=== PATIENT | female | born 1950 | race Caucasian/White ===

== ENCOUNTER 2022-12-18 11:58 | Outpatient (CLI) | payer MEDICARE, SELFPAY ==
--- NOTE | 2022-12-18 13:30 | ECG_ITS ---
Measurements Intervals Wolf Rate: 67 P: -14 AR: 155 QRS: -9 QRSD: 98 T: 41 QT: 398 QTc: 422 Interpretive Statements SINUS RHYTHM NORMAL ELECTROCARDIOGRAM NO PREVIOUS ECG AVAILABLE FOR COMPARISON Electronically Signed On 12-18-2022 15:04:14 [employer]INE[employer]ARD SUPERVISOR by Gus To M.D.
[2022-12-18 14:28] LABS: Basophils Absolute Auto 0.1 K/mm3 (0.0-0.1); Basophils Percent Auto 0.6 % (0.2-1.2); Eosinophils Absolute Auto 0.3 K/mm3 (0-0.3); Eosinophils Percent Auto 2.6 % (0-4.4); Hematocrit 39.9 % (37.0-47.0); Hemoglobin 13.5 g/dL (12.0-15.0); Immature Granulocyte Absolute 0.06 K/mm3 (0.00-0.031); Immature Granulocyte Percent A 0.6 % (0-0.5); Lymphocytes Absolute Auto 1.37 K/mm3 (0.9-3.2); Lymphocytes Percent Auto 14.2 % (18.3-44.2); Mean Corpuscular HGB Conc 33.8 g/dl (32-36); Mean Corpuscular Hemoglobin 31.5 pg (26-34); Mean Platelet Volume 10.2 fl (7.4-10.4); Monocytes Absolute Auto 0.7 K/mm3 (0.1-0.6); Neutrophils Absolute Auto 7.3 K/mm3 (1.3-6.7); Platelet Count Result 335 k/mm3 (150-375); Red Blood Count 4.29 M/mm3 (4.2-5.4); Red Cell Distribution Width 12.4 % (11.5-14.5); White Blood Count 9.7 K/mm3 (4.5-10.0)
[2022-12-18 14:39] LABS: Prothrombin Time 13.2 Seconds (11.1-14.7)
[2022-12-18 14:40] LABS: Partial Thromboplastin Time 27.8 SECONDS (22.3-36.8)
[2022-12-18 14:42] LABS: Alanine Aminotransferase 20 U/L (6-35); Albumin Level 4.1 g/dL (3.5-5.1); Alkaline Phosphatase 105 U/L (38-126); Anion Gap 5 mmol/L (8-16); Aspartate Amino Transferase 26 U/L (14-36); Bilirubin,Total 0.4 mg/dL (0.2-1.3); Blood Urea Nitrogen 16 mg/dL (7-17); Calcium 8.9 mg/dL (8.4-10.2); Carbon Dioxide 31 mmol/L (22-30); Chloride 94 mmol/L (98-107); Estimated Glomerular Filt Rate > 60; Glucose 100 mg/dL (65-110); Potassium 3.9 mmol/L (3.4-5.0); Sodium 130 mmol/L (137-145)
== END 2022-12-18 11:59 | disposition home or self-care (01) ==
PROVIDERS: PCP Family Medicine; Visit Provider Urology
DX: N99.3 Prolapse of vaginal vault after hysterectomy (principal); I10 Essential (primary) hypertension; Z01.818 Encounter for other preprocedural examination
CPT/HCPCS: 36415; 80053; 85025; 85610; 85730; 86850; 86900; 86901; 87086; 93005

== ENCOUNTER 2022-12-28 00:54 | Day surgery (SDC) | payer MEDICARE, SELFPAY ==
[2022-12-18 12:39] VITALS: BMI 24.7
--- NOTE | 2022-12-18 13:01 | PC.NURSE ---
Report to the Outpatient Waiting Room, entrance under the green pavilion located off [facility], at time __9:30AM on date __12/28/22 . Planned Procedure Time: __11:30AM . Time changes happen often and if your time is changed the preop area will call you the afternoon before. - You and your visitor will be asked to self-screen and do not enter if you have any COVID symptoms. - Only one visitor is requested with a max of two and NO children visitors are allowed at this time. - The patient visitor may be requested to leave or wait in car when not with patient due to distancing restrictions. - A mask is optional within the hospital at this time. Patients may have clear liquids (water, carbonated beverages, clear teas, apple juice) until 3 hours prior to surgery with a maximum of 20 ounces. - No food from midnight until time of surgery Take the following medications with a SIP of water the morning of surgery: ____ALBUTEROL INHALER NEEDED, EYE DROPS, IPRATROPIUM NASAL SPRAY, LEVOTHYROXINE, METORPROLOL, PREDNISONE DO NOT STOP ANY OF YOUR OTHER PRESCRIPTION MEDICATIONS PRIOR TO SURGERY ?EXCEPT THE FOLLOWING Medications to discontinue per physician ____HOLD ALL VITAMINS/SUPPLEMENTS 7 DAYS PRE-OP PER DR TREJO Date to take last dose 12/21/22 Please no make-up, nail egyptian, hairspray, perfume, deodorant, or body powder the day of surgery. No jewelry (including any body piercings) or valuables the day of surgery, leave them at home. Please take a shower or bath the night before, or the morning of, surgery with an antibacterial soap. Wear comfortable, loose fitting clothing. Children are encouraged to wear pajamas. - Jewelry must be removed prior to entering the operating room. Rings and piercings that are not removed may be cut off. - The hospital will not accept responsibility for valuables. - Please leave all valuables, including medications, at home the day of surgery. If you are going home after surgery, a licensed deliver driver must drive you home. - NO public transportation without another adult if you receive anesthesia. - We recommend that an adult stay with you for 24 hours following discharge. - We also recommend that you do not drive, make important decision, drink alcoholic beverages, or take any drugs that were not prescribed by your health care provider for at least 24 hours after your discharge time. Follow any additional instructions given to you from your surgeon. If you or anyone in your household have experienced Covid symptoms in the past week, please notify your surgeon or the nurse liaison at the phone number below for possible testing. Telephone instructions given to __PATIENT & HUSBAND_and asked if any additional questions and then verbalized understanding. Patient advised to call surgeon office or pre surgery nurse liaison [phone] if any additional questions.
[2022-12-18 13:33] VITALS: BP 145/75; PULSE 74; RESP 16; TEMP 36.6; O2SAT 100
--- NOTE | 2022-12-25 08:11 | PM.IMHP ---
H&P: HPI History of Present Illness Date/Time: 12/25/22 08:11 Chief Complaint: Pelvic organ prolapse, stress Narrative: 72-year-old female. Status post hysterectomy. 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 Review of Systems Review of Systems: All systems reviewed & are unremarkable except as noted in HPI and below PMFSH Social History Social History Smoking status: Never smoker Alcohol intake: current Drinks per week: 3 Substance use: never Living arrangements: with family Additional living arrangements comments: HUSB Spiritual care concerns: No Meds Home Medications and Allergies Home Medications Medication Instructions Recorded Confirmed Type albuterol sulfate 90 mcg/actuation 2 puff inhalation QID PRN Dyspnea 12/18/22 12/18/22 History aerosol inhaler ascorbic acid (vitamin C) 1,000 mg 1 g PO DAILY 12/18/22 12/18/22 History capsule sjvsldxvbr-hbvmrvlaigpyx-eqecppec 1 cap PO Q4-5H PRN Migraine 12/18/22 12/18/22 History 50 mg-300 mg-40 mg capsule Headache cholecalciferol (vitamin D3) 125 125 mcg PO DAILY 12/18/22 12/18/22 History mcg (5,000 unit) tablet cyclosporine 0.05 % eye drops in a 1 drp EACH EYE BID 12/18/22 12/18/22 History dropperette (Restasis) estradiol 0.5 mg tablet 0.5 mg PO DAILY 12/18/22 12/18/22 History famotidine 20 mg tablet 20 mg PO DAILY 12/18/22 12/18/22 History fluticasone propionate 50 1 spray intranasal HS 12/18/22 12/18/22 History mcg/actuation nasal spray,suspension folic acid 1 mg tablet 1 mg PO DAILY 12/18/22 12/18/22 History guaifenesin 600 mg tablet, 300 mg PO Q12H PRN Congestion 12/18/22 12/18/22 History extended release 12 hr (Mucinex) ipratropium bromide 42 mcg (0.06 2 spray intranasal BID 12/18/22 12/18/22 History %) nasal spray lactobacillus combination no.4 3 3,000 mmu cells PO DAILY 12/18/22 12/18/22 History billion cell capsule (Probiotic) levothyroxine 112 mcg tablet 112 mcg PO QAM 12/18/22 12/18/22 History methotrexate sodium 2.5 mg tablet 5 mg PO WEEKLY 12/18/22 12/18/22 History metoprolol succinate 100 mg 100 mg PO QAM 12/18/22 12/18/22 History tablet,extended release 24 hr montelukast 10 mg tablet 10 mg PO DAILY 12/18/22 12/18/22 History omikxmjf-tznlnfry-ceb C 250 2 tablet PO DAILY 12/18/22 12/18/22 History mg-herbal no.124 11.66 mg chewable tablet (Airborne Gummy) cdaimglk-mzfdvdmbs-lxityvxy 3.5 1 drp EACH EYE TID PRN Inflammation 12/18/22 12/18/22 History mg/mL-10,000 unit/mL-0.1% eye drops nortriptyline 25 mg capsule 25 mg PO HS 12/18/22 12/18/22 History prednisone 5 mg tablet 5 mg PO QAM 12/18/22 12/18/22 History riboflavin (vitamin B2) 100 mg 100 mg PO DAILY 12/18/22 12/18/22 History tablet (Vitamin B-2) triamterene 37.5 1 tablet PO QAM 12/18/22 12/18/22 History mg-hydrochlorothiazide 25 mg tablet Allergies Allergy/AdvReac Type Severity Reaction Status Date / Time cephalexin Allergy Rash Verified 12/18/22 12:17 desoximetasone Allergy Rash Verified 12/18/22 12:17 [From Topicort] doxycycline Allergy Rash Verified 12/18/22 12:17 gatifloxacin [From Tequin] Allergy Unknown Verified 12/18/22 12:17 Sulfa (Sulfonamide Allergy Rash Verified 12/18/22 12:17 Antibiotics) azathioprine AdvReac SPIKE IN Verified 12/18/22 12:17 LIVER ENZYMES celecoxib AdvReac BRUISING Verified 12/18/22 12:17 levofloxacin AdvReac INSOMNIA, Verified 12/18/22 12:17 JOINT PAIN Exam Narrative: Anterior wall +3. [place] at -1. Urethral mobility noted Assessment and Plan Assessment and plan (1) Prolapse of vaginal vault after hysterectomy: Code(s): N99.3 - Prolapse of vaginal vault after hysterectomy Status: Acute (2) SHANNEN (stress urinary incontinence, female): Code(s): N39.3 - Stress incontinence (female) (male) Status: Acute Plan robotic sacral colpopexy, urethral sling. Under
[2022-12-28] VITALS (22 sets, daily range): BP systolic 123–178; BP diastolic 66–119; PULSE 55–80; RESP 12–22; TEMP 36.1–36.9; O2SAT 93–100
--- NOTE | ~2022-12-28 | CT_ITS ---
EXAMINATION: CTA chest PE protocol DATE: 12/28/2022 19:07 INDICATION: respiratory distress TECHNIQUE: Computed tomography angiography (CTA) of the chest was performed with 100 mL Omnipaque-350 intravenous contrast timed to evaluate the pulmonary arteries. Coronal maximum intensity projection 3D-reconstructions were created by the technologist. The dose-length product (DLP) was 249.76 mGy-cm. Automated exposure control and iterative reconstruction technique were employed. COMPARISON: None. FINDINGS: Lung parenchyma and airways: Peripheral and basal reticular opacities. Lower lobe bronchiectasis. Tog ether these likely represent a UIP pattern of interstitial lung disease. Pleura: Unremarkable. Thoracic inlet, axillae and chest wall: Unremarkable. Thoracic aorta: Mild arch calcification. Mediastinum: Mediastinal lymphadenopathy. Heart and pericardium: Normal. Coronary artery calcifications: Absent. Upper abdomen: No significant finding. Bones: No acute osseous finding. Pulmonary arteries: Study quality: Adequate. No pulmonary emboli detected. IMPRESSION: No CT evidence of acute pulmonary embolus. Chronic findings of interstitial lung disease. Reviewed, dictated and finalized at location K. ENT DIRECTOR IMPRESSION: No CT evidence of acute pulmonary embolus. Chronic findings of interstitial alma g disease.
--- NOTE | 2022-12-28 07:13 | WPDHPUPDATE1 ---
History and Physical Update Update Date/Time: 12/28/22 07:13 History and Physical has been reviewed, including an updated exam of the patient. There are NO changes in the patient's condition. Risks, benefits, and alternatives have been discussed and questions answered. Patient agrees to proceed with procedure.
[2022-12-28] MEDS: LACTATED RINGERS 1,000 ML 30 ML IV CONT ×2 (10:28→14:02)
[2022-12-28 10:40] LABS: Sodium 134 mmol/L (137-145)
--- NOTE | 2022-12-28 10:42 | WPDANESEPPF ---
Anes - Initial Pre Proc Eval Procedure: Operation Date: 12/28/22 11:30 Proposed Procedures p Robotic Sacrocolpopexy - Otis Ambriz MD s Urethral Sling - Otis Ambriz MD Date/Time: 12/28/22 10:42 Surgeon: Otis Ambriz MD Pre Op Diagnosis: vag vault prolpase after hyst Patient Data Age: 72 Gender: F Height: 1.64 m Weight: 66.4 kg Last Vital Signs Temp 97.8 F 12/18/22 13:33 Pulse 74 12/18/22 13:33 Resp 16 12/18/22 13:33 BP 145/75 H 12/18/22 13:33 Pulse Ox 100 12/18/22 13:33 O2 Del Method Room Air 12/18/22 13:33 Allergies Allergy/AdvReac Type Severity Reaction Status Date / Time cephalexin Allergy Rash Verified 12/28/22 10:07 desoximetasone Allergy Rash Verified 12/28/22 10:07 [From Topicort] doxycycline Allergy Rash Verified 12/28/22 10:07 gatifloxacin [From Tequin] Allergy Unknown Verified 12/28/22 10:07 Sulfa (Sulfonamide Allergy Rash Verified 12/28/22 10:07 Antibiotics) azathioprine AdvReac SPIKE IN Verified 12/28/22 10:07 LIVER ENZYMES celecoxib AdvReac BRUISING Verified 12/28/22 10:07 levofloxacin AdvReac INSOMNIA, Verified 12/28/22 10:07 JOINT PAIN Home Medications Medication Instructions Recorded Confirmed Type albuterol sulfate 90 mcg/actuation 2 puff inhalation QID PRN Dyspnea 12/18/22 12/28/22 History aerosol inhaler ascorbic acid (vitamin C) 1,000 mg 1 g PO DAILY 12/18/22 12/28/22 History capsule jwxwhdatlp-tmokdghvabjii-gitnrjyk 1 cap PO Q4-5H PRN Migraine 12/18/22 12/28/22 History 50 mg-300 mg-40 mg capsule Headache cholecalciferol (vitamin D3) 125 125 mcg PO DAILY 12/18/22 12/28/22 History mcg (5,000 unit) tablet cyclosporine 0.05 % eye drops in a 1 drp EACH EYE BID 12/18/22 12/28/22 History dropperette (Restasis) estradiol 0.5 mg tablet 0.5 mg PO DAILY 12/18/22 12/28/22 History famotidine 20 mg tablet 20 mg PO DAILY 12/18/22 12/28/22 History fluticasone propionate 50 1 spray intranasal HS 12/18/22 12/28/22 History mcg/actuation nasal spray,suspension folic acid 1 mg tablet 1 mg PO DAILY 12/18/22 12/28/22 History guaifenesin 600 mg tablet, 300 mg PO Q12H PRN Congestion 12/18/22 12/28/22 History extended release 12 hr (Mucinex) ipratropium bromide 42 mcg (0.06 2 spray intranasal BID 12/18/22 12/28/22 History %) nasal spray lactobacillus combination no.4 3 3,000 mmu cells PO DAILY 12/18/22 12/28/22 History billion cell capsule (Probiotic) levothyroxine 112 mcg tablet 112 mcg PO QAM 12/18/22 12/28/22 History methotrexate sodium 2.5 mg tablet 5 mg PO WEEKLY 12/18/22 12/28/22 History metoprolol succinate 100 mg 100 mg PO QAM 12/18/22 12/28/22 History tablet,extended release 24 hr montelukast 10 mg tablet 10 mg PO DAILY 12/18/22 12/28/22 History jfeeskag-uqfgrocu-rtc C 250 2 tablet PO DAILY 12/18/22 12/28/22 History mg-herbal no.124 11.66 mg chewable tablet (Airborne Gummy) wbjljekp-djywgnqup-tzsdbfrc 3.5 1 drp EACH EYE TID PRN Inflammation 12/18/22 12/28/22 History mg/mL-10,000 unit/mL-0.1% eye drops nortriptyline 25 mg capsule 25 mg PO HS 12/18/22 12/28/22 History prednisone 5 mg tablet 5 mg PO QAM 12/18/22 12/28/22 History riboflavin (vitamin B2) 100 mg 100 mg PO DAILY 12/18/22 12/28/22 History tablet (Vitamin B-2) triamterene 37.5 1 tablet PO QAM 12/18/22 12/28/22 History mg-hydrochlorothiazide 25 mg tablet Laboratory Tests 12/28/22 10:04 Sodium 134 mmol/L L mmol/L (137-145) Patient hx anesthesia problems: none Family hx anesthesia problems: none Results Review: All pre-operative results and documents have been reviewed as part of the pre-operative evaluation. [facility] Social History Social History Smoking status: Never smoker Alcohol intake: current Drinks per week: 3 Substance use: never Living arrangements: with family Additional living arrangements comments: FARIDEH Brooks
[2022-12-28] MEDS: CLINDAMYCIN 600 MG/D5W 50 ML 600 MG/50 ML PIGGYBACK 100 MG IVPB ×2 (11:05→19:20)
[2022-12-28] MEDS: BUPIVACAINE/EPINEPHRINE 0.5% 10 ML VIAL INFILTRATE (11:36)
--- NOTE | 2022-12-28 14:08 | W.PM.PROC2 ---
Procedure Note - Detailed Date of Procedure 12/28/22 Pre-op Diagnosis vag vault prolpase after hyst stress incontinence Post-op Diagnosis Same Procedure Performed Robotic assisted laparoscopic sacral colpopexy Urethral sling Cystoscopy Surgeon Otis Ambriz MD Anesthesia General Indications This is a woman with post hysterectomy vaginal vault prolapse as well as stress urinary incontinence. She desires surgical correction. She understands risks of bleeding, infection, diskitis, damage to surrounding organs, damage to the bowel or urinary tract, recurrence of prolapse, dyspareunia, vaginal mesh exposure, urinary tract mesh exposure, obstructive voiding requiring secondary procedure, hip and leg pain, and other perioperative intraoperative and postoperative complications. She is to proceed Findings See below Description of Procedure She was correctly identified. Informed consent obtained. She is brought to the operating room. She was given general anesthesia. She was placed in the lithotomy position. She was given appropriate perioperative antibiotics. She was prepped and draped in a sterile fashion. A time-out performed. I anesthetized the skin 3 fingerbreadths cephalad to the umbilicus. I incised the skin. I located the fascia. I grasped the fascia with Layla clamps. I incised the fascia sharply and a Turner type technique. I placed Vicryl sutures for later fascial closure. I placed a midline trocar. Under direct vision placed 2 additional trocars in the right upper quadrant and 2 additional trocars in the left upper quadrant. She was placed in steep Trendelenburg. The robot was docked. I sat at the console. With the Sizer in the vagina and created a plane on the anterior and posterior vaginal wall for several cm taking great care not to injure the vagina, bladder, or rectum. of note there was quite a bit of scarring in this area due to previous hysterectomy. Adnexa was sewn across the midline over the apex I introduced the mesh into the vagina. I sewed the anterior leaflet of mesh on the anterior vaginal wall and posterior leaf of the mesh on the posterior vaginal wall with several sutures of 2 0 Rogers-Jack taking great care not to go through and through. I then opened up the peritoneum over the sacral promontory. I carried this incision into the cul-de-sac. I freed up the edges for later retroperitonealization of the mesh. I located the anterior longitudinal ligament of the sacrum. I cleaned off any fatty tissues. I then tensioned my mesh appropriately. I did a vaginal exam to ensure prolapse reduction without undue tension. I then sewed the proximal leaflet of mesh onto the ligament with several sutures of 2 0 Rogers-Jack. I then used a 2 0 Monocryl to meticulously retroperitonealized all mesh. I allowed the colon to go back into its normal anatomic location. There is no sign of impingement. He had an was then exited. additional fascial sutures were placed. Fascial sutures were closed. The wounds were all irrigated and closed with 4 O Monocryl and skin glue. She was then repositioned and prepped for urethral sling. I marked out the inner thigh incisions. I anesthetized the skin and made those incisions. I then anesthetized the anterior vaginal wall over the mid urethra. I made a 1 cm incision. I dissected out laterally taking great care not to injure the urethra vaginal wall. I passed the helical trocars. I did this 1st on the left than on the right from the thigh incision towards the vaginal incision. Sling was connected to the trocars and brought out through the thigh incision. I tensioned the sling appropriately. I cut and removed the plastic sleeves. I then performed cystoscopy. The bladder showed no evidence of surgical artifact or tumor. Both ureters were seen to excrete clear yellow urine. I cut the excess sling material. I closed incisions with glue. She was awakened and transferred to the PACU in stable
[2022-12-28] MEDS: fentaNYL CITRATE INJ (*CRX) 100 MCG/2 ML VIAL 25 MCG IV PUSH ×4 (14:28→14:44)
--- NOTE | 2022-12-28 15:23 | PC.NURSE ---
This patient, Luz Rivas, was received from PACU on 12/28/22 at 1523. Patient/family oriented to unit policies and routines
[2022-12-28] MEDS: KCL 20 MEQ/D5/0.45% SOD CHL 1,000 ML 100 ML IV CONT (16:20)
[2022-12-28] MEDS: IPRATROPIUM NASAL SPRAY 0.06% 15 ML BOTTLE 2 SPRAY NASAL (16:25)
--- NOTE | 2022-12-28 17:21 | PM.IMCN ---
Assessment and Plan Assessment and plan (1) S/P sacrocolpopexy: Code(s): Z98.890 - Other specified postprocedural states Status: Acute Assessment and Plan: Postop care per Dr. Ambriz for bladder sling Analgesics per Dr. Ambriz. (2) Hypertension: Code(s): I10 - Essential (primary) hypertension Status: Acute Assessment and Plan: -p.r.n. hydralazine -continue with metoprolol -continue with triamterene with hydrochlorothiazide but monitor renal function closely. (3) Hypothyroidism: Code(s): E03.9 - Hypothyroidism, unspecified Status: Acute Assessment and Plan: Continue with levothyroxine (4) Interstitial lung disease: Code(s): J84.9 - Interstitial pulmonary disease, unspecified Status: Acute Assessment and Plan: -continue with nebulizer treatments, continue with prednisone, continue singular Continue with guaifenesin Wean off oxygen when able. Continue with nebulizer treatments HPI Data of Consult Consult date: 12/29/22 Requesting Physician: Otis Ambriz MD Primary Care Provider: Kuldeep DejesusMD Consult Narrative Narrative: Luz Rivas is a 72 year old female who underwent a vaginal vault prolapse after hysterectomy and stress incontinence she had a robotic assisted laparoscopic sacral colpopexy, urethral sling, and cystoscopy. Postoperatively the patient became very anxious and short of breath. She was hypoxic at 89% she was placed on oxygen at 2 L per nasal cannula. The patient was somewhat lethargic when I assessed her. A CTA was performed and there is no CT evidence of acute coronary embolus. Chronic findings of interstitial lung disease. Her white count was noted to be 17.7. Sodium 131. Glucose 137. The patient was admitted to Dr. Ambriz and the hospitalist group was consulted on the date of service of 12/28/2022. Review of Systems Review of Systems: See HPI All systems reviewed & are unremarkable except as noted in HPI and below Constitutional: Constitutional: Reports as per HPI and Reports no additional constitutional complaints Eyes: Eyes: Reports as per HPI and Reports no additional eye complaints ENT: Reports system reviewed and no additional complaints, except as documented and Reports Normal hearing present Cardiovascular: Cardiovascular: Reports no additional cardiovascular complaints Respiratory: Respiratory: Reports no additional respiratory complaints and Reports no additional respiratory complaints Gastrointestinal: Gastrointestinal: Reports as per HPI and Reports no additional gastrointestinal complaints Musculoskeletal: Musculoskeletal: Reports no additional musculoskeletal complaints Integumentary/Breasts: Skin/Breast: Reports system reviewed and no additional complaints, except as docu and Reports as per HPI Neurologic: Reports system reviewed and no additional complaints, except as documented, Reports as per HPI and Reports Normal hearing present Psychiatric: Psychiatric: Reports no additional psychiatric complaints and Reports as per HPI Endocrine: Endocrine: Reports no additional endocrine complaints Hematologic/Lymphatic: Hematologic/Lymphatic: Reports no additional hematologic/lymphatic complaints Allergic/Immunologic: Allergic/Immunologic: Reports no additional allergic/immunologic complaints [facility] Past Medical History Medical History (Updated 12/29/22 @ 00:35 by Rosario Desir NP) Hypertension Hypothyroidism Interstitial lung disease Surgical History Surgical History (Updated 12/29/22 @ 00:41 by Rosario Desir NP) H/O cataract extraction H/O cystoscopy H/O eye surgery H/O tubal ligation H/O: hysterectomy S/P ASA/PRK (advanced surface ablation photorefractive keratectomy) S/P LASIK surgery S/P nasal surgery S/P sacrocolpopexy Status post creation of urethral sling by suprapubic approach Family History Family History (Updated 12/29/22 @ 00:36 by Rosario Rodriguez
[2022-12-28 18:26] LABS: Hematocrit 38.8 % (37.0-47.0); Hemoglobin 13.2 g/dL (12.0-15.0); Mean Corpuscular Hemoglobin 32.2 pg (26-34); Mean Corpuscular Volume 94.6 fl (80-100); Mean Platelet Volume 9.5 fl (7.4-10.4); Platelet Count Result 273 k/mm3 (150-375); Red Cell Distribution Width 12.4 % (11.5-14.5); White Blood Count 17.7 K/mm3 (4.5-10.0)
[2022-12-28 18:37] LABS: Anion Gap 5 mmol/L (8-16); Blood Urea Nitrogen 14 mg/dL (7-17); Calcium 7.9 mg/dL (8.4-10.2); Carbon Dioxide 27 mmol/L (22-30); Chloride 99 mmol/L (98-107); Estimated CRCL calculation 54 ml/min; Estimated Glomerular Filt Rate > 60; Glucose 137 mg/dL (65-110); Potassium 3.7 mmol/L (3.4-5.0); Sodium 131 mmol/L (137-145)
--- NOTE | 2022-12-28 19:22 | PC.NURSE ---
1545 Pt's called out, pt c/o secretions stuck in her throat on her left side. Pt had c/o dry mouth and was unable to cough and clear secretions. Pt took 2 puffs of her own Albuterol inhaler w/ help of her w/o RN in room. No improvement. RN assisted pt w/ splinting, deep breaths and coughing, still not able to cough up secretions. Pulse ox remained @ 100%. Per pt her secretions get thick and rubbery when she doesn't take her Mucinex, which she was told to hold and not take today due to her surgery. (This note added to respiratory assessment) 1600 RN @ bedside, pt taking ice chips, used dry mouth swabs and took her own Albuterol x1 again. Pt felt like she needed to belch and wanted to sit up, RN x2 assisted pt and patted pt's back and she was able to have a small belch but still not able to clear her secretions. RN assisted pt again w/ splinting, deep breaths and coughing, still no improvement. Pt still c/o mucous being stuck in the left side of her throat, pt rubbing throat to see if that helps. Pulse ox remains @ 100%. 1615 Rapid Response called due to no improvement in patient's breathing and not being able to clear her secretions. Information Systems Operator, Tate, ICU learning and development analyst and Respiratory present shortly after call. 1618 Dr. Ambriz called, left message with staff. 1622 Dr. Cui with anesthesia called and updated. 1625 Dr. Ambriz returned call, update given. Also advised MD that pt's abdomen was soft, incisions dry and intact, urine is clear and no pain. Per Dr. Ambriz transfer pt to telemetry floor. Information Systems Operator, Tate, aware. 1655 Patient transferred to Room 242 and settled in room with family at bedside, report given to Juana ADAMS.
[2022-12-28] MEDS: cycloSPORINE 0.4 ML OPHTH SOLUTION 1 DROP EACH EYE (19:23)
[2022-12-28] MEDS: MORPHINE SULFATE (*CRX) 2 MG/ML INJ IV PUSH (19:46)
[2022-12-28] MEDS: ALBUTEROL SULFATE NEB 2.5 MG/3 ML INH INHALATION (20:03)
[2022-12-28] MEDS: IPRATROPIUM BR 0.02% INH SOLN 0.5 MG/2.5 ML VIAL INHALATION (20:03)
[2022-12-28] MEDS: FLUTICASONE PROPIONATE 0.05% NA SPR 16 GM BTL (*BKC) 1 SPRAY NASAL (20:39)
[2022-12-28] MEDS: NORTRIPTYLINE HCL 25 MG CAPSULE PO (20:39)
[2022-12-28] MEDS: guaiFENesin 600 MG/DEXTROMETHORPHAN 30 MG SR TAB 12 HR 1 TAB PO (20:39)
[2022-12-29] VITALS (13 sets, daily range): BP systolic 114–142; BP diastolic 58–77; PULSE 66–72; RESP 16–18; TEMP 36.3–37.6; O2SAT 93–99
[2022-12-29] MEDS: KCL 20 MEQ/D5/0.45% SOD CHL 1,000 ML 100 ML IV CONT (01:50)
[2022-12-29] MEDS: MORPHINE SULFATE (*CRX) 2 MG/ML INJ IV PUSH (01:53)
[2022-12-29] MEDS: CLINDAMYCIN 600 MG/D5W 50 ML 600 MG/50 ML PIGGYBACK 100 MG IVPB ×2 (02:54→10:03)
[2022-12-29 06:23] LABS: Basophils Percent Auto 0.3 % (0.2-1.2); Eosinophils Absolute Auto 0.2 K/mm3 (0-0.3); Eosinophils Percent Auto 1.7 % (0-4.4); Hematocrit 36.1 % (37.0-47.0); Immature Granulocyte Absolute 0.06 K/mm3 (0.00-0.031); Immature Granulocyte Percent A 0.5 % (0-0.5); Lymphocytes Absolute Auto 2.03 K/mm3 (0.9-3.2); Lymphocytes Percent Auto 17.8 % (18.3-44.2); Mean Corpuscular HGB Conc 33.2 g/dl (32-36); Mean Corpuscular Hemoglobin 31.8 pg (26-34); Mean Corpuscular Volume 95.8 fl (80-100); Monocytes Percent Auto 8.5 % (2.6-8.5); Neutrophils Absolute Auto 8.1 K/mm3 (1.3-6.7); Neutrophils Percent Auto 71.2 % (45.5-73.1); Platelet Count Result 265 k/mm3 (150-375); Red Blood Count 3.77 M/mm3 (4.2-5.4); Red Cell Distribution Width 12.7 % (11.5-14.5); White Blood Count 11.4 K/mm3 (4.5-10.0)
[2022-12-29 06:39] LABS: Anion Gap 4 mmol/L (8-16); Blood Urea Nitrogen 11 mg/dL (7-17); Calcium 7.5 mg/dL (8.4-10.2); Carbon Dioxide 25 mmol/L (22-30); Chloride 101 mmol/L (98-107); Estimated CRCL calculation 63 ml/min; Estimated Glomerular Filt Rate > 60; Glucose 111 mg/dL (65-110); Magnesium 1.8 mg/dL (1.6-2.3); Sodium 130 mmol/L (137-145)
[2022-12-29] MEDS: LEVOTHYROXINE SODIUM 112 MCG TABLET PO (06:39)
[2022-12-29 07:22] LABS: Thyroid Stimulating Hormone Reflex 0.233 uIU/mL (0.465-4.68)
--- NOTE | 2022-12-29 08:21 | PM.IMPN ---
Progress Note: A&P Assessment and Plan (1) S/P sacrocolpopexy: Code(s): Z98.890 - Other specified postprocedural states Status: Acute Assessment and Plan: Postop care per Urology Analgesics per urology (2) Hypertension: Code(s): I10 - Essential (primary) hypertension Status: Acute Assessment and Plan: Chronic, stable. BP 142/63 to 132/77, HR 68 May have some pain component. Continue with metoprolol and triamterene with hydrochlorothiazide Sodium 130, but appears chronic. Likely secondary to HCTZ. Renal function stable. (3) Hypothyroidism: Code(s): E03.9 - Hypothyroidism, unspecified Status: Chronic Assessment and Plan: Chronic, TSH 0.23, free T4 2.34 and mildly elevated. Recommend repeating thyroid panel in 2-4 weeks postop to verify. Continue with levothyroxine Management per primary care team. (4) Interstitial lung disease: Code(s): J84.9 - Interstitial pulmonary disease, unspecified Status: Acute Assessment and Plan: Chronic, off supplemental oxygen. No wheezing or respiratory complaints. Continue with nebulizer treatments, chronic prednisone, singular and PRN guaifenesin Nursing to ambulate patient and check spO2 to ensure no desaturation prior to discharge. Plan Patient to be discharged home today per Urology team. No concerns for discharge at this time. We discussed adding OTC stool softeners to prevent constipation if she continues to take opioid medications at home. Encouraged to continue incentive spirometry at least 48 hours postop. Time Spent With Patient Time: 20 minutes time spent reviewing medical chart, labs, vitals, patient assessment and education. Subjective Date/time seen: 12/29/22 08:21 POD1 Robotic assisted laparoscopic sacral colpopexy, Urethral sling and Cystoscopy with Dr. Ambriz. Hospitalist team was consulted for management of chronic diseases. She reports feeling tired and has some abdominal pain today. Clark was removed, but no urination yet. She is belching, but denies nausea or emesis. No BM yet. She denies chest pain, SOB, or palpitations. Oxygen was removed this morning. Review of Systems Review of Systems: All systems reviewed & are unremarkable except as noted in HPI and below Exam Narrative: General: No acute distress.? Well-developed adult female sitting up in the chair. Mental Status/Psych: Awake, alert and oriented x4 with clear speech. Neutral mood and affect. Pleasant and cooperative. Skin: fair, warm, dry and intact without rashes or lesions. Fair turgor.? HEENT: Normocephalic. Sclera is non-icteric. pupils equal and round. Grossly normal hearing. Oral mucosa pink and moist. Neck: Supple. No JVD. Heart: S1 and S2 regular rate and rhythm. No murmurs, gallops, or rubs auscultated. Chest: Respirations even and unlabored. Lung sounds are clear to auscultation, diminished in bibasilar lobes without wheezes, rhonchi, or rales. Abdomen: Soft, round and mildly tender to palpation diffusely.? Bowel sounds present in all 4 quadrants. Extremities:? Grossly normal ROM all extremities. No edema, erythema or calf tenderness. Radial and dorsalis pedis pulses +2 bilaterally. Neurological: No focal deficits. Cranial nerves 2-12 grossly intact.?No facial droop. Objective Data Vital Signs Vital Signs: Vital Signs - 24 hr 12/28/22 10:41 12/28/22 14:02 12/28/22 14:15 Temperature 98.4 F 98.3 F Pulse Rate 71 66 60 Respiratory Rate 16 16 14 Blood Pressure 143/73 H 130/75 151/74 H Pulse Oximetry 100 100 100 Oxygen Delivery Room Air Simple Face Mask Simple Face Mask Oxygen Flow Rate 6 6 12/28/22 14:30 12/28/22 14:45 12/28/22 15:00 Temperature Pulse Rate 55 L 62 63 Respiratory Rate 12 12 12 Blood Pressure 155/75 H 144/77 H 136/69 Pulse Oximetry 100 100 95 Oxygen Delivery Simple Face Mask Room Air Room Air Oxygen Flow Rate 6 12/28/22 15:15 12/28/22 16:44 12/28/22 18:00 Temper
[2022-12-29] MEDS: ACIDOPHILUS/BULGARICUS CHEWABLE TABLET 1 TABLET BY MOUTH (09:14)
[2022-12-29] MEDS: estradioL 0.5 MG TABLET PO (09:14)
[2022-12-29] MEDS: predniSONE 5 MG TABLET PO (09:14)
[2022-12-29] MEDS: METOPROLOL SUCCINATE EXT REL 100 MG TABCR PO (09:14)
[2022-12-29] MEDS: cycloSPORINE 0.4 ML OPHTH SOLUTION 1 DROP EACH EYE (09:15)
[2022-12-29] MEDS: ASCORBIC ACID 500 MG TABLET 1000 MG PO (09:15)
[2022-12-29] MEDS: FOLIC ACID 1 MG TABLET PO (09:15)
[2022-12-29] MEDS: guaiFENesin 600 MG/DEXTROMETHORPHAN 30 MG SR TAB 12 HR 1 TAB PO (09:15)
[2022-12-29] MEDS: ENOXAPARIN 30 MG/0.3 ML SYRINGE SUB-Q (09:16)
[2022-12-29] MEDS: IPRATROPIUM NASAL SPRAY 0.06% 15 ML BOTTLE 2 SPRAY NASAL (09:17)
[2022-12-29] MEDS: DOCUSATE SODIUM 100 MG CAPSULE PO (09:24)
--- NOTE | 2022-12-29 09:28 | WPDUROPN2 ---
Progress Note: A&P Assessment and Plan (1) S/P sacrocolpopexy: Code(s): Z98.890 - Other specified postprocedural states Status: Acute Assessment and Plan: Patient is doing very well with her incsions and post op pain. Encourage up to chair and ambulation. Wean 02 to room air and see how well she tolerates it. Increase diet to regular. If she does well this afternoon with activity and diet as well as stable 02 sats off 02, plan for discahrge home. Catheter may be removed and a voiding trial done. IF unable to urinate after 4-6 hours, replace ross with a 16fr ross and f/u in 2-3 days for ross removal in the office. (2) Interstitial lung disease: Code(s): J84.9 - Interstitial pulmonary disease, unspecified Status: Acute Assessment and Plan: Appreciate medicine input. Patient see's pulmonology at [facility]. She will plan to f/u with them after discharge. (3) Prolapse of vaginal vault after hysterectomy: Code(s): N99.3 - Prolapse of vaginal vault after hysterectomy Status: Acute (4) SHANNEN (stress urinary incontinence, female): Code(s): N39.3 - Stress incontinence (female) (male) Status: Acute Assessment and Plan: Follow up with Dr. Ambriz in 6 weeks. Subjective Subjective Date/Time Seen: 12/29/22 09:28 Robotic Assisted Laparoscopic Sacral Colpopexy, Urethral Sling, Cystoscopy Patient had a hypoxic episode last night with a rapid response called. Her 02 Sats dropped to 89%. Medicine was consulted and evaluated her. CT scan was negative for PE, she was placed on O2 2L. Post Op day: 1 Review of Systems Cardiovascular: Cardiovascular: Denies chest pain Respiratory: Respiratory: Denies pain on inspiration, Denies pain with cough and Denies dyspnea Gastrointestinal: Gastrointestinal: Reports abdominal pain, Denies nausea and Denies vomiting Genitourinary: Genitourinary: Denies hematuria Exam Const: General: cooperative and comfortable Resp: Effort & Inspection: no cough, not labored, no respiratory distress, no stridor and not tachypneic Cardio: Rate: regular rate GI: Inspection: incision (well approximated, no drainage, edema or redness present) GI Palp: Yes abdominal tenderness, Yes Soft to palpation and Yes Tenderness to palpation present (GI) : General: Yes no CVA tenderness Urinary Catheter: Urinary Catheter: patent and draining and urine clear Extrem: Right lower extremity: no edema Left lower extremity: no edema Objective Data Vital Signs Vital Signs: Vital Signs - 24 hr 12/28/22 10:41 12/28/22 14:02 12/28/22 14:15 Temperature 98.4 F 98.3 F Pulse Rate 71 66 60 Respiratory Rate 16 16 14 Blood Pressure 143/73 H 130/75 151/74 H Pulse Oximetry 100 100 100 Oxygen Delivery Room Air Simple Face Mask Simple Face Mask Oxygen Flow Rate 6 6 12/28/22 14:30 12/28/22 14:45 12/28/22 15:00 Temperature Pulse Rate 55 L 62 63 Respiratory Rate 12 12 12 Blood Pressure 155/75 H 144/77 H 136/69 Pulse Oximetry 100 100 95 Oxygen Delivery Simple Face Mask Room Air Room Air Oxygen Flow Rate 6 12/28/22 15:15 12/28/22 16:44 12/28/22 18:00 Temperature 98.5 F 98.1 F Pulse Rate 63 67 73 Respiratory Rate 12 22 H 18 Blood Pressure 149/73 H 129/73 152/67 H Pulse Oximetry 98 100 93 Oxygen Delivery Room Air Room Air Oxygen Flow Rate 12/28/22 15:30 12/28/22 16:35 12/28/22 16:38 Temperature 97.0 F L Pulse Rate 63 62 71 Respiratory Rate 18 22 H Blood Pressure 123/71 171/74 H 129/73 Pulse Oximetry 97 100 100 Oxygen Delivery Oxygen Flow Rate 12/28/22 16:42 12/28/22 16:44 12/28/22 16:46 Temperature Pulse Rate 65 67 70 Respiratory Rate Blood Pressure 147/119 H 168/66 H 165/80 H Pulse Oximetry 100 100 98 Oxygen Delivery Oxygen Flow Rate 12/28/22 16:48 12/28/22 16:50 12/28/22 19:23 Temperature 97.1 F L Pulse Rate 63 59 L 72 Respiratory Rate 17 Blood Pressure 154/81 H 178/
[2022-12-29] MEDS: IPRATROPIUM BR 0.02% INH SOLN 0.5 MG/2.5 ML VIAL INHALATION ×2 (09:37→14:12)
[2022-12-29] MEDS: ALBUTEROL SULFATE NEB 2.5 MG/3 ML INH INHALATION ×3 (09:37→14:12)
[2022-12-29 09:48] LABS: Free T4 Free Thyroxine Reflex 2.45 ng/dL (0.78-2.19)
[2022-12-29] MEDS: CHOLECALCIFEROL 1,000 UNITS TABLET 5000 UNITS PO (09:59)
[2022-12-29] MEDS: FAMOTIDINE 20 MG TABLET PO (09:59)
[2022-12-29] MEDS: TRIAMTERENE 37.5 MG/HCTZ 25 MG (MAXZIDE) TABLET 1 TAB PO (09:59)
[2022-12-29] MEDS: HYDROcodone/acetaminophen (*CRX) 5-325 MG TABLET 1 TAB PO (11:13)
--- NOTE | 2022-12-29 13:23 | P.PNAN_ITS ---
Anes - Prog Note Post-Op Date/Time: 12/29/22 13:23 Cardiovascular status: normal Respiratory status: normal Airway patency: baseline Mental status: baseline Post-Op hydration status: normal Vital Signs: Last Vital Signs Temp 36.9 C 12/29/22 09:03 Pulse 68 12/29/22 09:41 Resp 18 12/29/22 09:51 BP 132/77 12/29/22 09:03 Pulse Ox 93 12/29/22 09:41 O2 Del Method Room Air 12/29/22 09:41 O2 Flow Rate 2 12/28/22 20:17 Pain Score (VAS): 01/22 I/O: Intake & Output 12/28/22 12/29/22 12/29/22 23:59 07:59 15:59 Intake Total 50 1050 240 Output Total 500 Balance -450 1050 240 Laboratory Tests 12/29/22 05:31 12/29/22 05:31 12/28/22 12/28/22 12/29/22 18:18 18:18 05:31 WBC 17.7 H 11.4 H RBC 4.10 L 3.77 L Hgb 13.2 12.0 Hct 38.8 36.1 L MCV 94.6 95.8 MCH 32.2 31.8 MCHC 34.0 33.2 RDW 12.4 12.7 Plt Count 273 265 MPV 9.5 10.0 Immature Gran % (Auto) 0.5 Neut % (Auto) 71.2 Lymph % (Auto) 17.8 L [place] % (Auto) 8.5 Eos % (Auto) 1.7 Baso % (Auto) 0.3 Lymph # (Auto) 2.03 [place] # (Auto) 1.0 H Eos # (Auto) 0.2 Baso # (Auto) 0.0 Abs Immat Gran (auto) 0.06 H Absolute Neuts (auto) 8.1 H Absolute Nucleated RBC 0.0 Nucleated RBC % 0.0 Sodium 131 L Potassium 3.7 Chloride 99 Carbon Dioxide 27 Anion Gap 5 L BUN 14 Creatinine 0.70 Estim Creat Clear Calc 54 Estimated GFR > 60 Glucose 137 H Calcium 7.9 L Magnesium TSH (Reflex) Free T4 12/29/22 12/29/22 12/29/22 05:31 05:31 05:31 WBC RBC Hgb Hct MCV MCH MCHC RDW Plt Count MPV Immature Gran % (Auto) Neut % (Auto) Lymph % (Auto) [place] % (Auto) Eos % (Auto) Baso % (Auto) Lymph # (Auto) [place] # (Auto) Eos # (Auto) Baso # (Auto) Abs Immat Gran (auto) Absolute Neuts (auto) Absolute Nucleated RBC Nucleated RBC % Sodium 130 L Potassium 4.0 Chloride 101 Carbon Dioxide 25 Anion Gap 4 L BUN 11 Creatinine 0.60 L Estim Creat Clear Calc 63 Estimated GFR > 60 Glucose 111 H Calcium 7.5 L Magnesium 1.8 TSH (Reflex) 0.233 L Free T4 2.45 H Post-procedural complaints: none Patient Feedback: Patient satisfied with anesthetic care.
== END 2022-12-29 17:08 | disposition home or self-care (01) ==
LOC: ANHSURGERY 13:59 → ANHOB2 15:19 → ANH2MED 17:14
PROVIDERS: Nurse Practitioner; PCP Family Medicine; Visit Provider Urology
PROC: (CPT 57425; principal; 2022-12-28 11:30)
PROC: (CPT 57425; 2022-12-28 11:30)
DX: N99.3 Prolapse of vaginal vault after hysterectomy (principal); N39.3 Stress incontinence (female) (male); R09.02 Hypoxemia; R06.02 Shortness of breath; I10 Essential (primary) hypertension; J84.9 Interstitial pulmonary disease, unspecified; E03.9 Hypothyroidism, unspecified; Z79.51 Long term (current) use of inhaled steroids
CPT/HCPCS: 57425; 57288; S2900; 36415; 71275; 80048; 83735; 84295; 84439; 84443; 85025; 85027; 94640; 99199; A9270; C1771; C1781; C9290; J1170; J1650; J2270; J2405; J2704; J2710; J3010; J3480; J7030; J7120; J7512; Q9967

== ENCOUNTER 2023-04-08 09:21 | Outpatient (CLI) | payer MEDICARE, SELFPAY ==
[2023-04-08 10:10] LABS: Anion Gap 3 mmol/L (8-16); Blood Urea Nitrogen 14 mg/dL (7-17); Calcium 8.8 mg/dL (8.4-10.2); Carbon Dioxide 34 mmol/L (22-30); Chloride 96 mmol/L (98-107); Estimated Glomerular Filt Rate > 60; Glucose 88 mg/dL (65-110); Potassium 3.5 mmol/L (3.4-5.0); Sodium 133 mmol/L (137-145)
== END 2023-04-08 09:22 | disposition home or self-care (01) ==
LOC: ANHSURGERY 09:25
PROVIDERS: Anesthesiology; PCP Family Medicine; Visit Provider Urology
DX: Z01.812 Encounter for preprocedural laboratory examination (principal); N36.42 Intrinsic sphincter deficiency (ISD); Z51.81 Encounter for therapeutic drug level monitoring
CPT/HCPCS: 36415; 80048; 87086; 87088

== ENCOUNTER 2023-04-19 01:40 | Day surgery (SDC) | payer MEDICARE, SELFPAY ==
[2023-04-07 09:15] VITALS: BMI 24.2
--- NOTE | 2023-04-07 09:44 | PC.NURSE ---
Report to the Outpatient Waiting Room, entrance under the green pavilion located off [facility], at time __12:00PM on date __04/19/23 . Planned Procedure Time: __2:00PM . Time changes happen often and if your time is changed the preop area will call you the afternoon before. - You and your visitor will be asked to self-screen and do not enter if you have any COVID symptoms. - A mask is optional within the hospital at this time. Patients may have clear liquids (water, carbonated beverages, clear teas, apple juice) until 3 hours prior to surgery with a maximum of 20 ounces. - No food from midnight until time of surgery Take the following medications with a SIP of water the morning of surgery: __LEVOTHYROXINE, METOPROLOL, PREDNISONE, IPRATROPIUM NASAL SPRAY, ALBUTEROL INHALER NEEDED DO NOT STOP ANY OF YOUR OTHER PRESCRIPTION MEDICATIONS PRIOR TO SURGERY ?EXCEPT THE FOLLOWING Medications to discontinue per physician ____HOLD ALL VITAMINS/SUPPLEMENTS 3 DAYS PRE-OP PER ANESTHESIA Date to take last dose___04/15/23 Please no make-up, nail ukrainian, hairspray, perfume, deodorant, or body powder the day of surgery. No jewelry (including any body piercings) or valuables the day of surgery, leave them at home. Please take a shower or bath the night before, or the morning of, surgery with an antibacterial soap. Wear comfortable, loose fitting clothing. Children are encouraged to wear pajamas. - Jewelry must be removed prior to entering the operating room. Rings and piercings that are not removed may be cut off. - The hospital will not accept responsibility for valuables. - Please leave all valuables, including medications, at home the day of surgery. If you are going home after surgery, a licensed coal tram driver must drive you home. - NO public transportation without another adult if you receive anesthesia. - We recommend that an adult stay with you for 24 hours following discharge. - We also recommend that you do not drive, make important decision, drink alcoholic beverages, or take any drugs that were not prescribed by your health care provider for at least 24 hours after your discharge time. Follow any additional instructions given to you from your surgeon. If you or anyone in your household have experienced Covid symptoms in the past week, please notify your surgeon or the nurse liaison at the phone number below for possible testing. Telephone instructions given to __PATIENT and asked if any additional questions and then verbalized understanding. Patient advised to call surgeon office or pre surgery nurse liaison [phone] if any additional questions.
--- NOTE | 2023-04-17 11:41 | PM.IMHP ---
H&P: HPI History of Present Illness Date/Time: 04/17/23 11:41 Chief Complaint: incontinence Narrative: she is status post robotic colpopexy and urethral sling. 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 She has no urethral mobility on exam. Her prolapse does not seem overly tightened. 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 Social History Social History Social History: She is and lives with her . She has 2 children. She retired from being a assistant secretary. Code status full code Smoking status: Never smoker Alcohol intake: current Drinks per week: 2 Substance use: never Lack of Transportation: No Lack of Food: Never True Current Housing: I Have Housing Concerned About Future Housing: No Difficulty Paying Gas/Electric Bills: No Difficulty Paying for Meds: No Currently Unemployed: YES Education: High School Diploma/GED Difficulty w/ Childcare or Family Care: No Living arrangements: with family Additional living arrangements comments: HUSB Spiritual care concerns: No Meds Home Medications and Allergies Home Medications Medication Instructions Recorded Confirmed Type albuterol sulfate 90 mcg/actuation 2 puff inhalation QID PRN Dyspnea 12/18/22 04/07/23 History aerosol inhaler ascorbic acid (vitamin C) 1,000 mg 1 g PO DAILY 12/18/22 04/07/23 History capsule wslbazuljr-rzquikfaklxgp-yypndmtx 1 cap PO Q4-5H PRN Migraine 12/18/22 04/07/23 History 50 mg-300 mg-40 mg capsule Headache cholecalciferol (vitamin D3) 125 125 mcg PO DAILY 12/18/22 04/07/23 History mcg (5,000 unit) tablet cyclosporine 0.05 % eye drops in a 1 drp EACH EYE BID 12/18/22 04/07/23 History dropperette (Restasis) estradiol 0.5 mg tablet 0.5 mg PO HS 12/18/22 04/07/23 History famotidine 20 mg tablet 20 mg PO BID 12/18/22 04/07/23 History fluticasone propionate 50 1 spray intranasal HS 12/18/22 04/07/23 History mcg/actuation nasal spray,suspension guaifenesin 600 mg tablet, 300 mg PO Q12H PRN Congestion 12/18/22 04/07/23 History extended release 12 hr (Mucinex) ipratropium bromide 42 mcg (0.06 2 spray intranasal BID 12/18/22 04/07/23 History %) nasal spray lactobacillus combination no.4 3 3,000 mmu cells PO DAILY 12/18/22 04/07/23 History billion cell capsule (Probiotic) levothyroxine 112 mcg tablet 112 mcg PO QAM 12/18/22 04/07/23 History metoprolol succinate 100 mg 100 mg PO QAM 12/18/22 04/07/23 History tablet,extended release 24 hr montelukast 10 mg tablet 10 mg PO HS 12/18/22 04/07/23 History lyxmtvpt-qpxeskzi-vgl C 250 2 tablet PO DAILY 12/18/22 04/07/23 History mg-herbal no.124 11.66 mg chewable tablet (Airborne Gummy) sluonvlo-lzhazzxel-fbtpkeqb 3.5 1 drp EACH EYE TID PRN Inflammation 12/18/22 04/07/23 History mg/mL-10,000 unit/mL-0.1% eye drops nortriptyline 25 mg capsule 25 mg PO HS 12/18/22 04/07/23 History prednisone 5 mg tablet 5 mg PO QAM 12/18/22 04/07/23 History riboflavin (vitamin B2) 100 mg 100 mg PO DAILY 12/18/22 04/07/23 History tablet (Vitamin B-2) triamterene 3
--- NOTE | 2023-04-19 07:13 | WPDHPUPDATE1 ---
History and Physical Update Update Date/Time: 04/19/23 07:13 History and Physical has been reviewed, including an updated exam of the patient. There are NO changes in the patient's condition. Risks, benefits, and alternatives have been discussed and questions answered. Patient agrees to proceed with procedure.
--- NOTE | 2023-04-19 10:14 | SUR.PREOP ---
1010- SPOKE WITH DR. TREJO ABOUT PT ALLERGIES TO CEPHALEXIN AND LEVOFLOXACIN. DR. TREJO STATED TO GIVE PT GENTAMICIN 80 MG IV FOR ANTIBIOTICS. ORDERS PLACED FOR ANTIBIOTICS
[2023-04-19] MEDS: LACTATED RINGERS 1,000 ML 30 ML IV CONT (11:48)
[2023-04-19 11:49] VITALS: BP 138/69; PULSE 72; RESP 16; TEMP 36.4; O2SAT 98
--- NOTE | 2023-04-19 12:17 | WPDANESEPPF ---
Anes - Initial Pre Proc Eval Procedure: Operation Date: 04/19/23 13:00 Proposed Procedures p Cystoscopy with Injection of Bulkamid - Otis Ambriz MD Date/Time: 04/19/23 12:17 Surgeon: Otis Ambriz MD Pre Op Diagnosis: Intrinsic Sphincter Deficiency Patient Data Age: 72 Gender: F Height: 1.64 m Weight: 65.5 kg Last Vital Signs Temp 36.4 C 04/19/23 11:49 Pulse 72 04/19/23 11:49 Resp 16 04/19/23 11:49 BP 138/69 04/19/23 11:49 Pulse Ox 98 04/19/23 11:49 O2 Del Method Room Air 04/19/23 11:49 Allergies Allergy/AdvReac Type Severity Reaction Status Date / Time cephalexin Allergy Rash Verified 04/07/23 09:04 desoximetasone Allergy Rash Verified 04/07/23 09:04 [From Topicort] doxycycline Allergy Rash Verified 04/07/23 09:04 gatifloxacin [From Tequin] Allergy Unknown Verified 04/07/23 09:04 latex Allergy Difficulty Verified 04/07/23 09:33 Breathing Sulfa (Sulfonamide Allergy Rash Verified 04/07/23 09:04 Antibiotics) azathioprine AdvReac SPIKE IN Verified 04/07/23 09:04 LIVER ENZYMES celecoxib AdvReac BRUISING Verified 04/07/23 09:04 levofloxacin AdvReac INSOMNIA, Verified 04/07/23 09:04 JOINT PAIN Home Medications Medication Instructions Recorded Confirmed Type albuterol sulfate 90 mcg/actuation 2 puff inhalation QID PRN Dyspnea 12/18/22 04/19/23 History aerosol inhaler ascorbic acid (vitamin C) 1,000 mg 1 g PO DAILY 12/18/22 04/07/23 History capsule ifxqocjezz-nqfdprlhfrnqw-vbrhtsjq 1 cap PO Q4-5H PRN Migraine 12/18/22 04/19/23 History 50 mg-300 mg-40 mg capsule Headache cholecalciferol (vitamin D3) 125 125 mcg PO DAILY 12/18/22 04/19/23 History mcg (5,000 unit) tablet cyclosporine 0.05 % eye drops in a 1 drp EACH EYE BID 12/18/22 04/19/23 History dropperette (Restasis) estradiol 0.5 mg tablet 0.5 mg PO HS 12/18/22 04/19/23 History famotidine 20 mg tablet 20 mg PO BID 12/18/22 04/19/23 History fluticasone propionate 50 1 spray intranasal HS 12/18/22 04/19/23 History mcg/actuation nasal spray,suspension guaifenesin 600 mg tablet, 300 mg PO Q12H PRN Congestion 12/18/22 04/19/23 History extended release 12 hr (Mucinex) ipratropium bromide 42 mcg (0.06 2 spray intranasal BID 12/18/22 04/19/23 History %) nasal spray lactobacillus combination no.4 3 3,000 mmu cells PO DAILY 12/18/22 04/19/23 History billion cell capsule (Probiotic) levothyroxine 112 mcg tablet 112 mcg PO QAM 12/18/22 04/19/23 History metoprolol succinate 100 mg 100 mg PO QAM 12/18/22 04/19/23 History tablet,extended release 24 hr montelukast 10 mg tablet 10 mg PO HS 12/18/22 04/19/23 History qwndfrjg-seelezkl-mme C 250 2 tablet PO DAILY 12/18/22 04/19/23 History mg-herbal no.124 11.66 mg chewable tablet (Airborne Gummy) agzczjqh-zzgmjzeyq-prnlqaus 3.5 1 drp EACH EYE TID PRN Inflammation 12/18/22 04/19/23 History mg/mL-10,000 unit/mL-0.1% eye drops nortriptyline 25 mg capsule 25 mg PO HS 12/18/22 04/19/23 History prednisone 5 mg tablet 5 mg PO QAM 12/18/22 04/19/23 History riboflavin (vitamin B2) 100 mg 100 mg PO DAILY 12/18/22 04/19/23 History tablet (Vitamin B-2) triamterene 37.5 1 tablet PO QAM 12/18/22 04/19/23 History mg-hydrochlorothiazide 25 mg tablet hydrocodone 5 mg-acetaminophen 325 1 tablet PO Q6H PRN pain #20 tabs 12/28/22 04/07/23 Rx mg tablet docusate sodium 100 mg capsule 100 mg PO BID PRN Constipation 04/07/23 04/19/23 History (Colace) Patient hx anesthesia problems: none Family hx anesthesia problems: none Results Review: All pre-operative results and documents have been reviewed as part of the pre-operative evaluation. [facility] Past Medical History Medical History Hypertension Hypothyroidism Interstitial lung disease Surgical History Surgical History H/O cataract extrac
[2023-04-19] MEDS: GENTAMICIN 80MG/SOD CHL 50 ML 80 MG/50 ML BAG 100 MG IVPB (12:46)
--- NOTE | 2023-04-19 13:02 | SUR.OPER ---
STRAIGHT CATH 13:02 WITH 14 COUDE CATHETER ON STERILE FIELD PER SURGEON INTRAOP/UNABLE TO MEASURE
[2023-04-19] MEDS: LIDOCAINE HCL 2% GEL UROJET 10 ML PKG MUCOUS MEM (13:07)
[2023-04-19 13:15] VITALS: BP 127/69; PULSE 69; RESP 16; O2SAT 95
--- NOTE | 2023-04-19 13:17 | W.PM.PROC2 ---
Procedure Note - Detailed Date of Procedure 04/19/23 Pre-op Diagnosis Intrinsic Sphincter Deficiency Post-op Diagnosis Same Procedure Performed Cystoscopy with suburethral injection of implant material Surgeon Otis Ambriz MD Anesthesia MAC and Local Indications This is a woman with intrinsic sphincter deficiency. She has had a previous sling procedure as well as prolapse repair. She is here today for injection of bulking agent. She understands risks of bleeding, infection, lack of efficacy, need for repeat procedures, urinary retention. She agrees to proceed Description of Procedure She was correctly identified. Informed consent obtained. She from the operating room. She was given MAC anesthesia. Uro jet was applied. She was placed in dorsal lithotomy position. She was prepped draped in a sterile fashion. Given appropriate perioperative antibiotics. Time-out performed. Cystoscopy revealed no bladder abnormalities. No foreign bodies. Urethra was normal as well. It was open consistent with intrinsic sphincter deficiency. I chose a site 2 cm distal bladder neck. I injected the bulking agent circumferentially. I used 1-3/4 syringe. There was good bulking effect. Her bladder was left partially full. She was awakened transferred to PACU in stable condition. Estimated Blood Loss 0 Complications No immediate complications Condition Stable Disposition PACU
[2023-04-19 13:45] VITALS: BP 148/72; PULSE 62; RESP 20
[2023-04-19 14:15] VITALS: BP 138/66; PULSE 63; RESP 20
== END 2023-04-19 14:20 | disposition home or self-care (01) ==
PROVIDERS: PCP Family Medicine; Visit Provider Urology
PROC: 3E0K8GC Introduction of Other Therapeutic Substance into Genitourinary Tract, Via Natural or Artificial Opening Endoscopic (ICD-10-PCS; CPT 51715; principal; 2023-04-19 13:00)
DX: N36.42 Intrinsic sphincter deficiency (ISD) (principal); J84.9 Interstitial pulmonary disease, unspecified; I10 Essential (primary) hypertension; E03.9 Hypothyroidism, unspecified; Z79.51 Long term (current) use of inhaled steroids
CPT/HCPCS: 51715; J1100; J1580; J2405; J2704; J3010; J7120; L8606

== ENCOUNTER 2024-07-12 09:16 | Outpatient (CLI) | payer MEDICARE, SELFPAY ==
--- NOTE | 2024-07-12 09:30 | ECG_ITS ---
Test Date: 2024-07-12 09:36:27 Measurements Intervals [place] Rate: 77 P: -11 RI: 150 QRS: -18 QRSD: 100 T: 46 QT: 393 QTc: 445 Interpretive Statements SINUS RHYTHM WITH OCCASIONAL VENTRICULAR PREMATURE COMPLEXES NONSPECIFIC T-WAVE ABNORMALITY ABNORMAL ECG No previous ECG available for comparison Electronically Signed On 07-13-2024 13:04:37 CDT by Gus To M.D.
[2024-07-12 10:01] LABS: Anion Gap 9 mmol/L (4-12); Blood Urea Nitrogen 15 mg/dL (7-17); Calcium 9.1 mg/dL (8.4-10.2); Carbon Dioxide 30 mmol/L (22-30); Chloride 94 mmol/L (98-107); Estimated Glomerular Filt Rate > 60; Glucose 118 mg/dL (65-110); Potassium 3.4 mmol/L (3.4-5.0); Sodium 133 mmol/L (137-145)
== END 2024-07-12 09:17 | disposition home or self-care (01) ==
PROVIDERS: Anesthesiology; PCP Family Medicine; Visit Provider Podiatrist Foot & Ankle Surgery
DX: Z01.818 Encounter for other preprocedural examination (principal); I10 Essential (primary) hypertension; R94.31 Abnormal electrocardiogram [ECG] [EKG]
CPT/HCPCS: 36415; 80048; 93005

== ENCOUNTER 2024-07-14 01:01 | Day surgery (SDC) | payer MEDICARE, SELFPAY ==
--- NOTE | 2024-07-10 13:43 | PC.NURSE ---
Report to the Outpatient Waiting Room, entrance under the green pavilion located off [facility], at time _8 AM on date _07/14/24 . Planned Procedure Time: __10 AM .? Time changes happen often and if your time is changed the preop area will call you the afternoon before. - You and your visitor will be asked to self-screen and do not enter if you have any COVID symptoms. Please call surgeon if you need to reschedule. - A mask is optional within the hospital at this time. Patients may have clear liquids (water, carbonated beverages, clear teas, apple juice) until 3 hours prior to surgery( 7 AM) with a maximum of 20 ounces. - No food from midnight until time of surgery and no smoking - Infants may have breast milk until 4 hours before surgery, infant formula 6 hours prior to surgery. - Children will be allowed to drink immediately following surgery.? If applicable, please bring a bottle or sippy cup to assist with drinking. Juice, water, soda, and popsicles are readily available.? For infants on formula, please bring formula the day of surgery.? Pacifiers are allowed. Take only the following medications with a SIP of water on the morning of surgery: _INHALER IF NEEDED,EYE DROPS,LEVOTHYROXINE,METOPROLOL,PREDNISONE DO NOT STOP ANY OF YOUR OTHER PRESCRIPTION MEDICATIONS PRIOR TO SURGERY EXCEPT THE FOLLOWING Medications to discontinue per physician ___HOLD ALL VITAMINS AND SUPPLEMENTS 3 DAYS PRE OP.LAST DOSE 07/10/24 Please no make-up, nail dutch, hairspray, perfume, deodorant, or body powder the day of surgery.? No jewelry (including any body piercings) or valuables the day of surgery, leave them at home.? Please take a shower or bath the night before, or the morning of, surgery with an antibacterial soap.? Wear comfortable, loose fitting clothing.? Children are encouraged to wear pajamas. - Jewelry must be removed prior to entering the operating room.? Rings and piercings that are not removed may be cut off. - The hospital will not accept responsibility for valuables.? - Please leave all valuables, including medications, at home the day of surgery. If you are going home after surgery, a licensed hire car driver must drive you home.? - NO public transportation without another adult if you receive anesthesia. - We recommend that an adult stay with you for 24 hours following discharge. - We also recommend that you do not drive, make important decision, drink alcoholic beverages, or take any drugs that were not prescribed by your health care provider for at least 24 hours after your discharge time. Follow any additional instructions given to you from your surgeon. Telephone instructions given to ___PATIENT and asked if any additional questions and then verbalized understanding. Patient advised to call surgeon office or pre surgery nurse liaison [phone] if any additional questions.
[2024-07-10 13:56] VITALS: BMI 24.7
[2024-07-14] VITALS (8 sets, daily range): BP systolic 137–156; BP diastolic 63–95; PULSE 63–75; RESP 12–18; TEMP 36.1–37.1; O2SAT 94–100
--- NOTE | ~2024-07-14 | XR_ITS ---
EXAMINATION: XR surgery orthopedic DATE: 07/14/2024 12:33 INDICATION: Left first metatarsophalangeal arthrodesis TECHNIQUE: 2 fluoroscopic images of the left forefoot were obtained during procedure performed by Dr. Velazquez. Radiologist was not present for the imaging or procedure. The amount of fluoroscopy time u sed during this procedure was 0.2 minutes. COMPARISON: None. FINDINGS: First metatarsophalangeal arthrodesis with compression screw and dorsal plate-screw fixation. Alignme nt appears essentially anatomic. No fracture. Remaining joint spaces are unremarkable. IMPRESSION: 1. Expected appearance post first metatarsophalangeal instrumented arthrodesis. See procedure note fo r further detail. Reviewed, dictated and finalized at location A. IMPRESSION: 1. Expected appearance post first metatarsophalangeal instrumented arthrodesis. See procedure note for further detail.
--- NOTE | 2024-07-14 07:20 | WPDHPUPDATE1 ---
History and Physical Update Update Date/Time: 07/14/24 07:20 History and Physical has been reviewed, including an updated exam of the patient. There are NO changes in the patient's condition. Risks, benefits, and alternatives have been discussed and questions answered. Patient agrees to proceed with procedure.
--- NOTE | 2024-07-14 07:23 | WPDANESEPPF ---
Anes - Initial Pre Proc Eval Procedure: Operation Date: 07/14/24 10:00 Proposed Procedures p Arthrodesis of First Metatarsal Phalangeal Joint Left Foot - Shen Velazquez Jr., DPM Date/Time: 07/14/24 07:23 Surgeon: Shen Velazquez Jr., DPM Pre Op Diagnosis: Arthritic Bunion Left Foot Patient Data Age: 74 Gender: F Height: 1.64 m Weight: 66.25 kg Allergies Allergy/AdvReac Type Severity Reaction Status Date / Time cephalexin Allergy Rash Verified 07/14/24 08:24 desoximetasone Allergy Rash Verified 07/14/24 08:24 [From Topicort] doxycycline Allergy Rash Verified 07/14/24 08:24 gatifloxacin [From Tequin] Allergy Unknown Verified 07/14/24 08:24 latex Allergy Difficulty Verified 07/14/24 08:24 Breathing Sulfa (Sulfonamide Allergy Rash Verified 07/14/24 08:24 Antibiotics) azathioprine AdvReac SPIKE IN Verified 07/14/24 08:24 LIVER ENZYMES celecoxib AdvReac BRUISING Verified 07/14/24 08:24 levofloxacin AdvReac INSOMNIA, Verified 07/14/24 08:24 JOINT PAIN Home Medications Medication Instructions Recorded Confirmed Type ndamxiilse-ttpihdtsmogfy-igykspym 1 cap PO Q4-5H PRN Migraine 12/18/22 07/14/24 History 50 mg-300 mg-40 mg capsule Headache cholecalciferol (vitamin D3) 125 125 mcg PO DAILY 12/18/22 07/14/24 History mcg (5,000 unit) tablet cyclosporine 0.05 % eye drops in a 1 drp EACH EYE BID 12/18/22 07/14/24 History dropperette (Restasis) estradiol 0.5 mg tablet 0.5 mg PO DAILY 12/18/22 07/14/24 History famotidine 20 mg tablet 20 mg PO BID 12/18/22 07/14/24 History fluticasone propionate 50 1 spray intranasal HS 12/18/22 07/14/24 History mcg/actuation nasal spray,suspension guaifenesin 600 mg tablet, 300 mg PO Q12H PRN Congestion 12/18/22 07/14/24 History extended release 12 hr (Mucinex) ipratropium bromide 42 mcg (0.06 2 spray intranasal BID 12/18/22 07/14/24 History %) nasal spray lactobacillus combination no.4 3 3,000 mmu cells PO DAILY 12/18/22 07/14/24 History billion cell capsule (Probiotic) levothyroxine 112 mcg tablet 112 mcg PO QAM 12/18/22 07/14/24 History metoprolol succinate 100 mg 100 mg PO QAM 12/18/22 07/14/24 History tablet,extended release 24 hr montelukast 10 mg tablet 10 mg PO HS 12/18/22 07/14/24 History tcvmeejr-icqhhvlc-mdy C 250 2 tablet PO DAILY 12/18/22 07/14/24 History mg-herbal no.124 11.66 mg chewable tablet (Airborne Gummy) ycaccrpd-ilsjduivt-rnlmlckj 3.5 1 drp EACH EYE TID PRN Inflammation 12/18/22 07/14/24 History mg/mL-10,000 unit/mL-0.1% eye drops nortriptyline 25 mg capsule 25 mg PO HS 12/18/22 07/14/24 History prednisone 5 mg tablet 5 mg PO QAM 12/18/22 07/14/24 History triamterene 37.5 1 tablet PO QAM 12/18/22 07/14/24 History mg-hydrochlorothiazide 25 mg tablet albuterol sulfate 90 mcg/actuation 2 puff inhalation QID PRN 07/10/24 07/14/24 History aerosol inhaler Shortness Of Breath atorvastatin 10 mg tablet 10 mg PO HS 07/10/24 07/14/24 History cyanocobalamin (vitamin B-12) 1,000 mcg PO DAILY 07/10/24 07/14/24 History 1,000 mcg tablet omeprazole 20 mg capsule,delayed 20 mg PO DAILY 07/10/24 07/14/24 History release Patient hx anesthesia problems: none Family hx anesthesia problems: none Results Review: All pre-operative results and documents have been reviewed as part of the pre-operative evaluation. [facility] Past Medical History Medical History (Updated 07/14/24 @ 07:25 by Danny Herrera DO) Asthma COPD (chronic obstructive pulmonary disease) Hiatal hernia Hypertension Hypothyroidism Interstitial lung disease NIEVES (obstructive sleep apnea) Surgical History Surgical History H/O cataract extraction H/O cystoscopy H/O eye surgery H/O tubal ligation H/O: hysterectomy S/P ASA/PRK (advanced surface ablation photorefractive keratectomy) S/P LASIK surgery S/P nasal surgery S/P sacrocolpopexy Status post
[2024-07-14] MEDS: LACTATED RINGERS 1,000 ML 30 ML IV CONT ×2 (08:45→12:40)
--- NOTE | 2024-07-14 09:03 | WPDANESPNB ---
Anes - Peripheral Nerve Block Date/Time: 07/14/24 09:03 I have discussed with the patient/family/POA the placement of a peripheral nerve block for post-operative pain management, including associated risks, benefits, complications, and side effects. Alternative methods of post-operative analgesia were detailed. Questions were solicited and answers provided to the satisfaction of the patient/family/POA. Time-Out: A pre-procedural Time-Out was completed immediately before starting the procedure and confirmed: Patient Identification, Site, Procedure, Patient Position and the Availability of Requisite Equipment. Clinical Indications: Acute post-operative pain management requested by the operative surgeon. Nerve Block Insertion Note Anes-nerve block: posterior fossa sciatic left and adductor canal left Patient position: supine (for adductor canal) and other (right lateral for popliteal) Skin prep: chlorhexidine Needle: 22 gauge, stimulating, insulated echogenic needle. Needle length: 80 mm Technique: nerve stimulation lost at (mA) (for popliteal lost at 0.2) and ultrasound Injectate: bupivacaine 0.5% with epi 5 mcg/ml (20 mL for popliteal, 10 mL for adductor canal (no epi)) Observations: tolerated well Complications: none Procedure start time:: 1044 Procedure end time:: 105
[2024-07-14] MEDS: CLINDAMYCIN 900 MG/D5W 50 ML 900 MG/50 ML PIGGYBACK 50 MG IVPB (11:17)
--- NOTE | 2024-07-14 11:46 | SUR.PREOP ---
1010 PT AND INFORMED OF SURGERY TIME DELAY. DENIES NEEDS AT THIS TIME.
--- NOTE | 2024-07-14 12:43 | W.PM.PROC2 ---
Procedure Note - Detailed Date of Procedure 07/14/24 Pre-op Diagnosis Arthritic Bunion Left Foot Post-op Diagnosis Same Procedure Performed Arthrodesis of the first metatarsal phalangeal joint left foot Surgeon Shen Velazquez Jr., DPM Anesthesia General and Regional Indications Left forefoot pain Findings Loss of articular cartilage to the 1st metatarsal phalangeal joint. Description of Procedure PROCEDURE IN DETAIL: Under mild sedation, the patient was brought into the operating room, placed on the operating table in supine position. A pneumatic ankle tourniquet was placed about the patient's ipsilateral ankle. Following general anesthesia and a popliteal fossa block, the left foot was then scrubbed, prepped, and draped in the usual aseptic manner. An Esmarch bandage was then used to exsanguinate the patient's foot and the pneumatic ankle tourniquet was then inflated. Surgery began in the following manner: Attention was directed to the dorsal medial aspect of the 1st metatarsophalangeal joint where there was a moderate subcutaneous prominence was noted. The incision was made starting along the central shaft of the 1st metatarsal and extending just proximal to the interphalangeal joint of the hallux. The incision was continued deep down through the subcutaneous tissues using sharp and blunt dissection. All bleeders were cauterized as necessary. At this point, the dissection was continued down to the level of the periosteum and capsular structures overlying the 1st metatarsophalangeal joint. A full length periosteum and capsular incision was made just medial to the extensor hallucis longus tendon. The periosteum and capsular structures were freed from the base of the proximal phalanx as well as the distal 1st metatarsal. At this point, the 1st metatarsophalangeal joint was identified. There was loss of articular cartilage to the head of the 1st metatarsal as well as the base of the proximal phalanx worse centrally and medially. There was significant broadening and hypertrophy of the 1st metatarsophalangeal joint. Utilizing a sagittal bone saw, the hypertrophied 1st metatarsal was resected dorsally, medially, and laterally. A power bur was used to make sure that there were no rough edges and also to further debride the hypertrophic 1st metatarsal. Next, a rongeur was used to resect the hypertrophic base of the proximal phalanx. At this point, the reamer system for the Maxforce plaste system was used to denude the degenerative cartilage from the head of the 1st metatarsal as well as the base of the proximal phalanx. The cartilage and subchondral bone were fully debrided utilizing the reamer system until healthy bleeding bone was noted. Next, a 2-0 drill bit was used to further fenestrate the head of the 1st metatarsal as well as the base of the proximal phalanx in order to allow fusion across the 1st metatarsophalangeal joint. Next, a guide wire for a 3.0 Headed Arthrex Quickfix cannulated screw was driven from the medial aspect of the base of the proximal phalanx into the head of the 1st metatarsal in order to serve as temporary fixation, next the cannulated screw was driven and provided excellent compression. Next A large steel plate was used to make sure that the hallux was in a rectus position both in the sagittal plane as well as the frontal plane. Excellent position of the hallux was noted. Next, a Maxforce plate was placed atop the 1st metatarsophalangeal joint held in position with [place] wires. Utilizing standard principles and techniques, the distal drill holes were drilled and three 3.0 mm fully-threaded locking screws were driven from dorsal to plantar holding the distal aspect of the plate intact. At this point, the Maxforce compression system was utilized from dorsal distal to proximal plantar across the 1st metatarsophalangeal joint with excellent compression noted. Next, a 3.0mm locking screw was used to further com
== END 2024-07-14 14:30 | disposition home or self-care (01) ==
PROVIDERS: PCP Family Medicine; Visit Provider Podiatrist Foot & Ankle Surgery
PROC: (CPT 28750; principal; 2024-07-14 10:00)
DX: M21.612 Bunion of left foot (principal); M19.072 Primary osteoarthritis, left ankle and foot; G89.18 Other acute postprocedural pain; J44.9 Chronic obstructive pulmonary disease, unspecified; I10 Essential (primary) hypertension; E03.9 Hypothyroidism, unspecified; J84.9 Interstitial pulmonary disease, unspecified; G47.33 Obstructive sleep apnea (adult) (pediatric); Z79.51 Long term (current) use of inhaled steroids
CPT/HCPCS: 28750; 64447; 64445; 99199; C1713; C1769; J1100; J2250; J2405; J2704; J3010; J7120